=== PATIENT | female | born 1955 | race Two or more races ===

== ENCOUNTER 2021-05-05 12:22 | Emergency (ER) | payer MEDICAID, OTHER ==
[~2021-05-05] VITALS: Ht 152.4 cm; Wt 56.2 kg
--- NOTE | 2021-05-05 13:02 | NUR ---
The patient bibs for c/o L hip pain, radiating down L leg with burning since this morning L hip pain and pain to L 4th digit s/p fall 1 month ago. Rates pains 10/15. Will continue to monitor the patient.
[2021-05-05] MEDS ORDERED: KETOROLAC TROMETHAMINE INJ 30 MG/ML VIAL IM ONE (13:30)
[2021-05-05] MEDS ORDERED: KETOROLAC TROMETHAMINE INJ 30 MG/ML VIAL ONE (13:46)
[2021-05-05] MEDS ORDERED: IBUP-1953 PO (16:35)
[2021-05-05 16:50] VITALS: BP 141/76
--- NOTE | 2021-05-05 16:50 | NUR ---
Patient discharged to home in stable condition. Written and verbal after care instructions given. Patient verbalizes understanding of instruction. The patient is picked up by a friend.
== END 2021-05-05 16:51 | disposition home or self-care (01) ==
LOC: ER 12:29
DX: M54.32 Sciatica, left side (principal); I10 Essential (primary) hypertension; E11.9 Type 2 diabetes mellitus without complications
CPT/HCPCS: 72192; 73130; 93971; 96372; 99285; J1885